=== PATIENT | male | born 1985 | race African-American/Black ===

== ENCOUNTER 2021-06-14 12:02 | Emergency (ER) | payer OTHER ==
[~2021-06-14] VITALS: Ht 182.9 cm; Wt 85.0 kg
[2021-06-14] MEDS ORDERED: IBUPROFEN 600MG TABLET PO ONE (12:30)
[2021-06-14 12:31] VITALS: BP 122/72
[2021-06-14] MEDS ORDERED: IBUP-2029 MT (13:29)
== END 2021-06-14 13:59 ==
LOC: ER 12:13
DX: S93.491A Sprain of other ligament of right ankle, initial encounter (principal); X50.1XXA Overexertion from prolonged static or awkward postures, initial encounter; Y93.02 Activity, running; Y92.89 Other specified places as the place of occurrence of the external cause
CPT/HCPCS: 73610; 73630; 99284